=== PATIENT | female | born 1975 | race Caucasian/White ===

== ENCOUNTER → 2017-11-21 | Outpatient (CLI) | payer BC ==
[2017-11-21] MEDS: IOHEXOL 300 MG/ML 100ML VIAL. IV (08:47)
== END | disposition home or self-care (01) ==
LOC: KCIC CT 08:01
DX: N28.89 Other specified disorders of kidney and ureter (principal)
CPT/HCPCS: 74160; Q9967

== ENCOUNTER → 2019-11-18 | Outpatient (CLI) | payer BC ==
[~2019-11-18] MED LIST: IOHEXOL 240 MG/ML 50ML VIAL. PO ONE; IOHEXOL 300 MG/ML 100ML VIAL. IV ONE; METH-364 PO
--- NOTE | 2019-11-18 09:35 | KCIC ---
CT abdomen with contrast History: Renal cyst Technique: After the administration of intravenous contrast, CT imaging was performed of the abdomen. Oral contrast was also given. Multiplanar images are reviewed. Pelvis was not imaged with this exam. Exposure: One or more of the following individualized dose reduction techniques were utilized for this examination: 1. Automated exposure control 2. Adjustment of the mA and/or kV according to patient size 3. Use of iterative reconstruction technique. Comparison: November 21, 2017 Findings: Both kidneys enhance, no hydronephrosis. There is again exophytic centrally hypodense lesion of the mid to inferior left kidney with prominent peripheral calcification. Internal density measurements about 52 Hounsfield units are unchanged. Overall size of lesion is about 2.4 cm transverse by 2.2 cm AP by 2.3 cm cc, overall similar in size and morphology. There is no new lymphadenopathy. There is no abnormality of the limited visualized lung bases. No new focal abnormality is identified liver, spleen, pancreas. There is no adrenal nodularity. Gallbladder is present without obvious intraluminal abnormality by CT. There is again ventral laxity of the abdominal wall near the umbilicus with underlying bowel unchanged in appearance. Bowel is not dilated. There is no free fluid or free air. There is degenerative disc disease of visualized inferior lumbar levels. Impression: 1. Exophytic lesion of the mid to superior left kidney is stable in size and morphology, again associated with prominent peripheral calcification. Cami 2F. Electronically signed by: Joe Corral MD (11/18/2019 9:32 AM) [id number]
== END ==
LOC: KCIC MAMMO 07:48
PROVIDERS: ATTEND Internal Medicine
DX: N28.89 Other specified disorders of kidney and ureter (principal); N28.1 Cyst of kidney, acquired; M51.36 Other intervertebral disc degeneration, lumbar region
CPT/HCPCS: 74160; Q9966; Q9967

== ENCOUNTER → 2019-12-11 | Outpatient (CLI) | payer BC ==
[~2019-12-11] MED LIST changes: -IOHEXOL 240 MG/ML 50ML VIAL. PO ONE; -IOHEXOL 300 MG/ML 100ML VIAL. IV ONE
--- NOTE | 2019-12-11 16:47 | RAD ---
EXAMINATION: MAMMO ANTWAN DIAG BILAT, BREAST LEFT History: Reason: left breast lump / Spl. Instructions: / History: Comparison: None. Technique: Bilateral digital diagnostic mammogram views were obtained. CAD was utilized. 3-D tomosynthesis images were acquired. Findings: Breast Tissue Density C : The breasts are heterogeneously dense, which may obscure small masses. There are no dominant masses, suspicious microcalcifications, or architectural distortion. Asymmetry in the anterior left retroareolar region is identified to persist on spot compression imaging but probably represents summation of breast parenchyma and vasculature. At the site of the left lower inner breast palpable abnormality 9 cm from the nipple in the 7:00 region, no suspicious mammographic findings evident. Limited left breast ultrasound was performed at the site of palpable abnormality. There is a less than 0.2 cm hypoechoic structure within the skin of the left breast. There is no suspicious finding within the left breast parenchyma. IMPRESSION: The palpable abnormality as a corresponding finding within the skin of the left breast on ultrasound exam. Clinical management of the reported palpable abnormality is recommended. No suspicious breast mass at the site of palpable abnormality. Six-month follow-up mammography of the asymmetry involving the left breast however is recommended. Ultrasound may be needed at that time. BI-RADS category 3: Probably benign. The images were reviewed with computer aided detection. Patient information is entered into the reminder system with a target due date for the next screening mammogram. Mammography is the most sensitive method for finding small breast cancers, but it does not detect them all and is not a substitute for careful clinical examination. A negative mammogram does not negate a clinically suspicious finding and should not result in delay in biopsying a clinically suspicious abnormality. "Our facility is accredited by the [employer] Mammography [employer]." Electronically signed by: Betito Frost MD (12/11/2019 4:44 PM) [id number]
== END | disposition home or self-care (01) ==
LOC: MAMMO 10:22
PROVIDERS: ATTEND Internal Medicine
DX: R92.2 Inconclusive mammogram (principal); N63.24 Unspecified lump in the left breast, lower inner quadrant
CPT/HCPCS: 76641; 77066; G0279; 77062

== ENCOUNTER → 2021-06-01 | Outpatient (CLI) | payer BC ==
[~2021-06-01] MED LIST changes: -METH-364 PO; +METH10TA32 PO
--- NOTE | 2021-06-01 12:18 | KCIC ---
AP and Lateral Views of the Chest 06/01/2021 10:25 AM Indication: Reason: XIPHOID PAIN, NO INJURY Comparison: None Findings: There is no focal consolidation or infiltrate identified. The cardiomediastinal silhouette is within normal limits. There is no evidence of pneumothorax or pleural effusion. No acute osseous a bnormalities are identified. Impression: No evidence of acute cardiopulmonary process. Electronically signed by: Yandel Nicholas MD (06/01/2021 12:15 PM) [id number]
--- NOTE | 2021-06-02 10:02 | KCIC ---
Exam Date: 06/01/2021 10:01 AM US ABDOMEN COMPLETE Indication: Reason: ABD/EPIGASTRIC PAIN / Spl. Instructions: / History: . TECHNIQUE: Multiple longitudinal and transverse sonographic images of the abdomen are submitted for interpretation. COMPARISON: CT from November 18, 2019 FINDINGS: The liver is enlarged up to 17.2 cm with normal echogenicity. The portal vein is patent, with hepa topetal flow. No focal intrahepatic abnormality is seen. The gallbladder is normal, without gallstones, gallbladder wall thickening or pericholecystic fluid. There is no biliary ductal dilatation, with the common bile duct measuring 3 mm. The spleen is normal in size and echogenicity. The visualized abdominal aorta, inferior vena cava an d pancreas are within normal limits. There is no upper abdominal ascites. There is a 2.5 cm hypoech oic lesion in the left kidney with peripheral calcification. The right kidney measures 10.3 cm and t he left kidney measures 10.9 cm. IMPRESSION: Hepatomegaly. Calcified left renal cyst, which was also present on the prior CT from 2019. This measures 2.5 cm, s imilar in size compared to the prior exam, where it measured 2.4 cm. Electronically signed by: Pedro Luis Russell MD (06/02/2021 10:00 AM) [id number]
== END ==
LOC: KCIC US 09:56
PROVIDERS: ATTEND Internal Medicine
DX: R16.0 Hepatomegaly, not elsewhere classified (principal); N28.1 Cyst of kidney, acquired
CPT/HCPCS: 71046; 76700

== ENCOUNTER → 2021-06-15 | Outpatient (CLI) | payer BC ==
--- NOTE | 2021-06-15 09:55 | KCIC ---
Bilateral diagnostic digital mammograms with 3-D tomosynthesis: Reason for examination: Follow-up left breast lump. No current complaints. Comparison is made to previous studies dated 12/11/2019 and 12/27/2016. Bilateral mammograms in CC and oblique projections were obtained with 2-D imaging and 3-D tomosynthes is imaging on a Siemens Inspiration unit and reviewed on the workstation. Interpretation was made wit h the benefit of CAD. The skin and nipples show no abnormalities. No abnormal axillary lymph nodes are seen. The breast par enchyma is heterogeneously dense. (Breast density: Category C.) There are no dominant masses, suspici ous calcifications or architectural distortion. Scattered benign appearing calcifications are again s een. Impression: No evidence of malignancy. Ultrasound to follow. Your patient's mammogram demonstrates that she has dense breast tissue (breast density category C or D), which could hide abnormalities, and if she has other risk factors for breast cancer that have bee n identified, she might benefit from supplemental screening tests that may be suggested by you as her ordering physician. Dense breast tissue, in and of itself, is a relatively common condition. Therefo re, this information is not provided to cause undue concern, but rather to raise your awareness and t o promote discussion with your patient regarding the presence of other risk factors, in addition to d ense breast tissue. Your patient's mammography results will be sent to her. BI-RAD Category 0: Incomplete. Needs additional imaging evaluation. Left breast ultrasound: Comparison is made to previous study dated 12/11/2019. Ultrasound examination of the left breast and axilla was performed. There is no discrete cystic or solid nodule or. The small superficial nodule seen previously at the 7 :00 position has resolved. IMPRESSION: No focal abnormality seen sonographically. Recommend routine mammographic follow-up. BI-RADS Category 2: Benign. "Our facility is accredited by the [employer] Mammography Program." This patient's information has been entered into a reminder system for the patient to be notified wit h the results of her examination and a target date for the next mammogram. Electronically signed by: Priscila Olivia MD (06/15/2021 9:53 AM) [id number]
== END ==
LOC: KCIC MAMMO 08:13
PROVIDERS: ATTEND Internal Medicine
DX: R92.2 Inconclusive mammogram (principal)
CPT/HCPCS: 76641; 77066; G0279; 77062

== ENCOUNTER 2021-07-31 22:17 | Emergency (ER) | payer BC ==
[~2021-07-31] VITALS: Ht 162.6 cm; Wt 70.4 kg
--- NOTE | 2021-08-01 00:46 | PHYS DOC ---
Past Medical History Past Medical History: Anemia, Other (uterine fibroids) Additional Past Medical Histor: uterine fibroid,kidney cyst (JEFFERY BARR ASSISTANT PORTFOLIO MANAGER) Past Surgical History: Other Additional Past Surgical Histo: left ovary w fibroma,uterine polyp, (JEFFERY BARR ASSISTANT PORTFOLIO MANAGER) Smoking Status: Never Smoker Alcohol Use: Occasionally (JEFFERY BARR ASSISTANT PORTFOLIO MANAGER) General Adult EDM: Chief Complaint: VAGINAL BLEEDING HPI: HPI: Patient is a 46 year old female with a history of uterine fibroids, anemia, presenting today complaining of vaginal bleeding, symptoms have been going on for 15 days. She states her ferritin was 5 on Monday and she was started on iron by her burlap bag sewer. Reports abdominal cramping. Denies any nausea, vomiting, denies any chance she is . She states she started passing large clots yesterday and today they got worse (JEFFERY BARR ASSISTANT PORTFOLIO MANAGER) Review of Systems: Review of Systems: Constitutional: Denies fever or chills. [] GI: Reports abdominal cramping, vaginal bleeding, denies nausea, vomiting, bloody stools or diarrhea. [] : Denies dysuria. [] Musculoskeletal: Denies back pain or joint pain. [] Integument: Denies rash. [] Neurologic: Denies headache, focal weakness or sensory changes. [] Psychiatric: Denies depression or anxiety. [] (JEFFERY BARR ASSISTANT PORTFOLIO MANAGER) Heart Score: C/O Chest Pain: N/A Risk Factors: Risk Factors: DM, Current or recent (<one month) smoker, HTN, HLP, family history of CAD, obesity. Risk Scores: Score 0 - 3: 2.5% MACE over next 6 weeks - Discharge Home Score 4 - 6: 20.3% MACE over next 6 weeks - Admit for Clinical Observation Score 7 - 10: 72.7% MACE over next 6 weeks - Early Invasive Strategies (JEFFERY BARR ASSISTANT PORTFOLIO MANAGER) Allergies: Allergies: Allergies Coded Allergies Type Severity Reaction Last Updated Verified No Known Drug Allergies 11/21/17 No (JEFFERY BARR ASSISTANT PORTFOLIO MANAGER) Physical Exam: PE: Constitutional: Well developed, well nourished, no acute distress, non-toxic appearance. [] Abdomen: Bowel sounds normal, soft, no tenderness, no masses, no pulsatile masses. [] Pelvic exam-external pelvic appears normal, cervix is visualized, closed, no CMT, no adnexal tenderness, trace amount of bright red blood in the vaginal vault, no clots Skin: Warm, dry, no erythema, no rash. [] Back: No tenderness, no CVA tenderness. [] Extremities: No tenderness, no cyanosis, no clubbing, ROM intact, no edema. [] Neurologic: Alert and oriented X 3, normal motor function, normal sensory function, no focal deficits noted. [] Psychologic: Affect normal, judgement normal, mood normal. [] (JEFFERY BARR APRN) Current Patient Data: Labs: Microbiology 07/31/21 Wet Prep - Final, Complete Vital Signs: Vital Signs Date Time Temp Pulse Resp B/P (MAP) Pulse Ox O2 Delivery O2 Flow Rate FiO2 07/31/21 23:13 98.6 79 16 149/76 (100) 99 Room Air 98.6 (JEFFERY BARR APRN) EKG: EKG: [] (JEFFERY BARR APRN) Radiology/Procedures: Radiology/Procedures: [] (JEFFERY BARR APRN) Course & Med Decision Making: Course & Med Decision Making Pertinent Labs and Imaging studies reviewed. (See chart for details) This is a 46-year-old female patient with history of uterine fibroids presenting today complaining of vaginal bleeding for 15 days. [address] Leonardo luna pending (JEFFERY BARR APRN) Course & Med Decision Making Hb stable- Rx medroxyprogesterone. Referred to OB-interior assemblies developer [facility] (HANNAH ARREOLA DO) Clay Disclaimer: Clay Disclaimer: This electronic medical record was generated, in whole or in part, using a voice recognition dictation system. (JEFFERY BARR APRN) Departure Departure Impression: Primary Impression: Dysfunctional uterine bleeding Disposition: HOME / SELF CARE / HOMELESS Condition: STABLE Referrals: LORENZO LEVINE MD (PCP) Patient Instructions: Uterine Bleeding, Dysfunctional Scripts Medroxyprogesterone Acetate (MEDROXYPROGESTERONE ACETATE) 10 Mg Tablet 1 TAB PO DAILY, #10 TAB 4 Refills Prov: HANNAH ARREOLA DO 08/01/21 JEFFERY BARR APRN Aug 01, 2021 00:46 HANNAH ARREOLA DO Aug 01, 2021 04:02
[2021-08-01 01:11] LABS: BASO # 0.1 x10^3/uL (0.0-0.2); BASO % 1 % (0-3); EOS # 0.1 x10^3/uL (0.0-0.7); EOS % 1 % (0-3); HEMATOCRIT 35.1 % (36.0-47.0); HEMOGLOBIN 11.5 g/dL (12.0-15.5); LYMPH # 1.2 x10^3/uL (1.0-4.8); LYMPH % 10 % (24-48); MEAN CORPUSCULAR HEMOGLOBIN 28 pg (25-35); MEAN CORPUSCULAR HGB CONC 33 g/dL (31-37); MEAN CORPUSCULAR VOLUME 85 fL (79-100); MONO # 0.5 x10^3/uL (0.0-1.1); MONO % 4 % (0-9); NEUT # 9.8 x10^3/uL (1.8-7.7); NEUT % 84 % (31-73); PLATELET COUNT 288 x10^3/uL (140-400); RED BLOOD COUNT 4.11 x10^6/uL (3.50-5.40); RED CELL DISTRIBUTION WIDTH 14.4 % (11.5-14.5); WHITE BLOOD COUNT 11.7 x10^3/uL (4.0-11.0)
[2021-08-01 03:16] VITALS: BP 102/64
[2021-08-01] MEDS ORDERED: MEDR10TA3 PO (03:58)
[2021-08-03 17:11] LABS: GC PROBE Negative (Negative)
== END 2021-08-01 00:46 | disposition home or self-care (01) ==
LOC: ER 22:17
DX: N93.8 Other specified abnormal uterine and vaginal bleeding (principal)
CPT/HCPCS: 36415; 84702; 85025; 87491; 87591; 99285; Q0111